=== PATIENT | female | born 1995 | race Caucasian/White ===

== ENCOUNTER 2022-10-01 09:12 | Emergency (ER) | payer OTHER, SELFPAY ==
--- NOTE | ~2022-10-01 | XR_ITS ---
EXAMINATION: XR hand LT min 3V DATE: 10/01/2022 09:55 INDICATION: Dog bite to the dorsal aspect of the left third digit TECHNIQUE: Posteroanterior, oblique and lateral views of the left hand were obtained. COMPARISON: None. FINDINGS: Alignment is normal. No fracture. Joint spaces are normal. Sclerotic margins associated with mild cys tic change at the radial aspect of the proximal lunate. Mild soft tissue swelling in the third digit centered at the level of the proximal interphalangeal joint. No radiopaque foreign bodies. IMPRESSION: 1. No acute osseous abnormality. Reviewed, dictated and finalized at location B.
[2022-10-01 09:17] VITALS: BP 100/51; PULSE 69; RESP 20; TEMP 36.5; O2SAT 100
--- NOTE | 2022-10-01 09:37 | ED.ANIMALBIT ---
HPI - Animal Bite General Chief Complaint: Animal Bite Stated Complaint: DOG BITE L HAND Time Seen by Provider: 10/01/22 09:31 History of Present Illness HPI narrative: Pt bit in left 3rd finger by neighbor's dog. Dog shots UTD per neighbor. Pt unsure of tetanus status. Related Data Allergies Allergy/AdvReac Type Severity Reaction Status Date / Time cefaclor [From Ceclor] Allergy Unknown Verified 10/01/22 09:53 Penicillins Allergy Unknown Verified 10/01/22 09:53 Review of Systems Review of Systems: All systems reviewed & are unremarkable except as noted in HPI and below Exam Const: General: healthy appearing Nutritional Appearance: well nourished Orientation/consciousness: patient oriented x3 Limitations: no limitations Chest: Chest palpation & inspection: normal inspection of the chest Resp: Effort & Inspection: normal respiratory effort Cardio: Rate: regular rate Rhythm: regular rhythm GI: GI Palp: Yes Soft to palpation Auscultation: normal bowel sounds Skin: Wounds: wounds noted (4 cm laceration to left 3rd finger) Neuro: General: patient oriented x3, moves all extremities and no focal motor deficits Cranial nerves: Yes Nystagmus not present Speech: normal speech Extrem: General: no clubbing, cyanosis or edema Psych: Mental Status: mental status grossly normal Affect: normal affect Attitude: cooperative Course Vital Signs Vital signs: Vital Signs Temperature 97.7 F 10/01/22 09:17 Pulse Rate 69 10/01/22 09:17 Respiratory Rate 10/01/22 09:17 Blood Pressure 100/51 L 10/01/22 09:17 Pulse Oximetry 100 10/01/22 09:17 Oxygen Delivery Room Air 10/01/22 09:17 Temperature 97.7 F 10/01/22 09:17 Pulse Rate 69 10/01/22 09:17 Respiratory Rate 20 10/01/22 09:17 Blood Pressure 100/51 L 10/01/22 09:17 Pulse Oximetry 100 10/01/22 09:17 Oxygen Delivery Room Air 10/01/22 09:17 Procedures Laceration Laceration 1: Site: hand (3rd finger) Side (If applicable): left Size (cm): 5 Description: linear and clean Depth: simple, single layer Local Anesthetic: lidocaine 1% Amount of anesthesia used (mL): 8 ====== Skin Level ====== Skin layer closed with: nylon Size (cm): 4-0 Number of sutures: 7 Technique: simple, interrupted ====== Subcutaneous Layer ====== ====== Muscle Layer ====== ====== Tendon Layer ====== Dressing: copiously. tendns intact. irrigated with ns and prepped with betadine and draped. loosely approximated with 7 4-0 nylon sutures Discharge Plan Discharge Clinical Impression: Dog bite Patient Disposition: Home, Self-Care Condition: Improved Instructions: Antibiotic Form, Animal Bite (ED), Care For Your Stitches (ED), Laceration (ED) Prescriptions: New clindamycin HCl 300 mg capsule 300 mg PO Q6H Qty: 40 0RF hydrocodone-acetaminophen 5-325 mg tablet 1 tablet PO Q6H PRN (Reason: pain) Qty: 10 0RF Follow-up/Referrals: UNKNOWN,DOCTOR [Primary Care Provider] -
[2022-10-01] MEDS: HYDROcodone/acetaminophen (*CRX) 5-325 MG TABLET 1 TAB PO (09:51)
[2022-10-01] MEDS: TETANUS,DIPHTHERIA,AC PERTUSSIS ADULT (0.5 ML) BOOSTRIX IM (09:52)
[2022-10-01] MEDS: Please add drug allergy info to patient profile. 1 EACH XX (10:54)
== END 2022-10-01 11:51 | disposition home or self-care (01) ==
PROVIDERS: Emergency Provider Emergency Medicine
DX: S61.253A Open bite of left middle finger without damage to nail, initial encounter (principal); Z23 Encounter for immunization; W54.0XXA Bitten by dog, initial encounter
CPT/HCPCS: 12002; 73130; 90471; 90715; 99283; A9270

== ENCOUNTER 2022-10-12 13:06 | Emergency (ER) | payer OTHER, SELFPAY ==
--- NOTE | 2022-10-12 13:09 | ED.WOUNDLAC ---
HPI - Wound/Laceration General Chief Complaint: Animal Bite Stated Complaint: Dog bite Time Seen by Provider: 10/12/22 13:09 Source: patient Mode of arrival: ambulatory Limitations: no limitations History of Present Illness HPI narrative: Patient is a 26-year-old female that presents with concern of infection to sutures following a dog bite. Patient seen emergency department 10/01 and had 7 sutures placed. Patient has two doses of clindamycin remaining. Patient states the swelling and redness have significantly decreased and there has not been any drainage from wound. Patient concerned for discoloration of skin that was flapped back over and sutured in place. Related Data Home Medications Medication Instructions Recorded Confirmed etonogestrel 0.12 mg-ethinyl See Rx Instructions .Route .COMPLEX 10/12/22 10/12/22 estradiol 0.015 mg/24 hr vaginal ring (uRy) Allergies Allergy/AdvReac Type Severity Reaction Status Date / Time cefaclor [From Ceclor] Allergy Unknown Verified 10/12/22 13:16 Penicillins Allergy Unknown Verified 10/12/22 13:16 Review of Systems Review of Systems: All systems reviewed & are unremarkable except as noted in HPI and below Constitutional: Constitutional: Denies body ache(s), Denies chills, Denies fatigue, Denies fever(s), Denies headache(s), Denies malaise and Denies weakness Eyes: Eyes: Denies blurry vision, Denies irritation and Denies loss of vision ENT: Denies otalgia, Denies headache(s), Denies nasal discharge, Denies sinus pain and Denies sore throat Cardiovascular: Cardiovascular: Denies chest pain, Denies irregular heart rhythm and Denies dyspnea Respiratory: Respiratory: Denies dyspnea Gastrointestinal: Gastrointestinal: Denies abdominal pain, Denies melena, Denies hematochezia, Denies diarrhea, Denies nausea and Denies vomiting Musculoskeletal: Musculoskeletal: Denies back pain, Denies myalgias and Denies arthralgias Integumentary/Breasts: Skin/Breast: Denies pruritus, Denies rash and Reports wounds Neurologic: Denies headache(s), Denies loss of vision and Denies weakness Psychiatric: Psychiatric: Reports no additional psychiatric complaints Endocrine: Endocrine: Denies fatigue PMFSH Comments At time of signature, agree with nursing past medical, surgical, social and family history. There is no relevant family history pertinent to the presenting complaint. Exam Const: General: cooperative, healthy appearing, comfortable, no acute distress and well nourished Nutritional Appearance: well nourished Orientation/consciousness: patient oriented x3 Limitations: no limitations HENMT: Head: normal to inspection, normocephalic and atraumatic Ears: hearing grossly normal bilaterally and external ears normal Face/Nose/Sinus: Normal external nose present, normal facial exam and face symmetric Face and sinus: normal facial exam and face symmetric Mouth: Yes lip normal Eyes: General: appearance normal, both eyes and all related structures Alignment and Position: alignment normal and position normal Periorbital: periorbital findings normal Eyelids: eyelids normal Pupils: Equal, round and reactive pupils present EOM: EOMs intact bilaterally Neck: Neck: normal visual inspection, full ROM and supple Chest: Chest palpation & inspection: normal inspection of the chest Resp: Effort & Inspection: normal respiratory effort and able to speak in complete sentences Auscultation: clear to auscultation bilaterally Cardio: Rate: regular rate Rhythm: regular rhythm Heart sounds: S1 normal heart sound present and S2 normal heart sound present GI: Inspection: normal to inspection Skin: General skin exam: normal color and no rashes or lesions noted Neuro: General: patient oriented x3 and moves all extremities Cranial nerves: Yes Equal, round and reactive pupils present Speech: normal speech Gait exam (Neuro): Normal gait present Extrem: General: normal to inspection, full ROM
[2022-10-12 13:23] VITALS: BP 123/75; PULSE 70; RESP 16; TEMP 36.8; O2SAT 100
== END 2022-10-12 13:36 | disposition home or self-care (01) ==
PROVIDERS: Emergency Provider Nurse Practitioner Family
DX: S61.213A Laceration without foreign body of left middle finger without damage to nail, initial encounter (principal); W54.0XXA Bitten by dog, initial encounter
CPT/HCPCS: 99212; G0463